=== PATIENT | female | born 2000 | race Caucasian/White ===

== ENCOUNTER → 2023-06-05 09:49 | Outpatient (CLI) | payer MEDICAID, SELFPAY ==
--- NOTE | 2023-06-05 09:59 | US_ITS ---
PROCEDURE: US TRANSVAGINAL CLINICAL INDICATION: PELVIC AND PERINEAL PAIN COMPARISON: No exams were available for comparison FINDINGS: Transvaginal sonographic images of the pelvis were obtained. UTERUS: 8.5 cm x 5.5 cmx 4.3 cm anteverted with a combined endometrial thickness of 14.2mm. There is an anterior fibroid measuring 2.9 cm x 2.2 cm x 2.4 cm. LEFT OVARY: 3.7 cmx3.7 cmx2.9cm with a volume of 21.3ml. Left ovary appears polycystic. Dominant follicle measuring 1.8 cm. RIGHT OVARY: 3.8 cmx 3.4 cmx2.9 cm. With a volume of 22.7ml. Multiple small follicles within the right ovary. Both ovaries are seen and appear normal. Doppler flow to both ovaries are seen. There is no fluid in the cul-de-sac. IMPRESSION: 1. Anteverted uterus with a 2.9 cm anterior fibroid. 2. The endometrium appears thickened. 3. No fluid in the cul-de-sac. 4. Both ovaries are polycystic in appearance. Dictated by: Bernard Taylor MD 06/05/2023 16:43 Bernard Taylor MD in [facility] 06/05/2023 16:43
== END ==
PROVIDERS: PCP Nurse Practitioner Family; Visit Provider Nurse Practitioner Family
DX: R10.2 Pelvic and perineal pain (principal)
CPT/HCPCS: 76830

== ENCOUNTER → 2023-06-13 09:20 | Outpatient (CLI) | payer MEDICAID, SELFPAY ==
[2023-06-13 10:04] LABS: Basophils % 0.7 % (0.1-2.0); Eosinophils # 0.1 K/mm3 (0.0-0.4); Eosinophils % 0.8 % (0.1-12.0); Hematocrit 41.8 % (37.0-47.0); Hemoglobin 13.9 g/dL (12.2-16.2); Lymphocytes # 1.5 K/mm3 (0.7-4.5); Lymphocytes % 25.2 % (10-50); Mean Corpuscular HGB Conc 33.3 g/dL (31.8-35.4); Mean Corpuscular Hemoglobin 30.1 pg (27.0-31.2); Mean Corpuscular Volume 90.6 fl (81-99); Mean Platelet Volume 8.2 fl (7.4-10.4); Monocytes # 0.3 K/mm3 (0.1-1.0); Monocytes % 4.8 % (1.7-9.3); Neutrophils # 4.2 K/mm3 (1.8-7.8); Neutrophils % 68.5 % (37.0-80.0); Platelet Count 250 K/mm3 (142-424); Red Blood Count 4.62 M/mm3 (4.20-5.40); Red Cell Distribution Width 13.6 % (11.5-17.5); White Blood Count 6.1 K/mm3 (4.8-10.8)
== END ==
PROVIDERS: Visit Provider Obstetrics & Gynecology
DX: Z00.00 Encounter for general adult medical examination without abnormal findings (principal)
CPT/HCPCS: 36415; 85025